=== PATIENT | female | born 2000 | race Caucasian/White ===

== ENCOUNTER 2021-03-06 20:08 | Emergency (ER) | payer OTHER ==
[~2021-03-06] VITALS: Ht 165.1 cm; Wt 56.7 kg
--- NOTE | ~2021-03-06 | EMS ---
[address] [address] EMS Patient Care Report Name: STEVE LESTER Room #: DEP MARGARETH [place]#: [id number] Admission: 03/06/21 Attend Phys: Discharge: 03/06/21 Date of : 00 Report #: [id number] THIS REPORT FOR: //name// Report Transmitted: 03/07/2021 08:00 EMS Care Summary [place], [place]/[facility] Incident [id number] @ 03/06/2021 19:33 Incident Location [address] [place] [address] Patient STEVE LESTER Female, 20 Years 2000 Patient Address [address] [place] [address] Patient History Depression, Patient Allergies No known allergies, Patient Medications Seroquel, Chief Complaint alered mental status due to drug overdose Disposition Transported No Lights/[place] Reason Cardiac Arrest/ Transported To [facility] Narrative Patient was found sitting in the passenger seat of a car with an altered mental status. Bystanders explained that the patient took a few mg of xanax and 30 mg of homemade percocet. The patient was given a dose of narcan via IN and was then moved to the cot. EMS notice no change in the patient's mental status. The [address] [address] EMS Patient Care Report Name: STEVE LESTER Room #: DEP [place]#: [id number] Admission: 03/06/21 Attend Phys: Discharge: 03/06/21 Date of : 00 Report #: [id number] patient was then given a second dose of narcan, but once again had no improvement. The patient was then given a final dose of narcan. The patient became alert once she was in the ambulance just prior to transport but remained confused to where she was and what happened. During transport the patient became more oriented. Patient was transported to the er where care was given to the er nurse. Initial Vitals @19:43P: 86,R: 10,BP: 112/71,Pain: 0/10,GCS: 3,Glucose: 134,SpO2: 93,Revised Trauma: 8, @19:59P: 105,R: 18,BP: 140/93,Pain: 0/10,GCS: 14,SpO2: 98,Revised Trauma: 12, Assessments @19:41MENTAL:Unresponsive,SKIN:Cyanotic,Diaphoresis,HEENT:Eyes: Right: Constricted,Eyes: Left: Constricted,Head/Face: No Abnormalities,Neck/Airway: No Abnormalities,LUNG SOUNDS:General: No Abnormalities,ABDOMEN:General: No Abnormalities,PELVIS//GI:EXTREMITIES:Left Arm: No Abnormalities,Right Arm: No Abnormalities,Left Leg: No Abnormalities,Right Leg: No Abnormalities,PULSE:NEURO:No Abnormalities,@20:02MENTAL:Time Oriented,Place Oriented,Person Oriented,SKIN:Diaphoresis,HEENT:Head/Face: No Abnormalities,Neck/Airway: No Abnormalities,LUNG SOUNDS:ABDOMEN:PELVIS//GI:EXTREMITIES:PULSE:NEURO:No Abnormalities, Impression Overdose - Other opioids Procedures @19:41ALS AssessmentResponse: UnchangedSucceeded@PTAOxygen FlowRate: 15 Device: Non Re-breather Mask (NRB) Response: UnchangedSucceeded@19:42Narcan - 0.5 Milligrams (mg) - IntranasalResponse: Unchanged@19:44Narcan - 0.5 Milligrams (mg) - IntranasalResponse: Unchanged@19:47Narcan - 1 Milligrams (mg) - IntranasalResponse: Improved@19:50Saline Lock 10cc (20 ga) Site: Antecubital-LeftResponse: UnchangedSucceeded@19:463-Lead ECGResponse: UnchangedSucceeded@19:43NPA Response: UnchangedSucceeded@19:43StretcherResponse: Unchanged Timeline [employer]ORBIKE [employer]ER,Oxygen FlowRate: 15 Device: Non Re-breather Mask (NRB) Response: UnchangedSucceeded, 19:30,Call Received 19:30,Dispatch Notified 19:33,Dispatched 19:33,En Route 19:39,On Scene 19:40,At Patient 19:41,ALS Assessment,Response: UnchangedSucceeded, [address] [address] EMS Patient Care Report Name: STEVE LESTER Room #: [facility] MARGARETH [place]#: [id number] Admission: 03/06/21 Attend Phys: Discharge: 03/06/21 Date of : 00 Report #: [id number] 19:42,Narcan - 0.5 Milligrams (mg) - Intranasal,Response: Unchanged 19:43,Stretcher,Response: Unchanged 19:43,BP: 112/71 M,PULSE: 86,RR: 10 R,SPO2: 93 Ox,ETCO2: ,B,PAIN: 0,GCS: 3, 19:43,NPA Response: UnchangedSucceeded, 19:44,Narcan - 0.5 Milligrams (mg) - Intranasal,Response: Unchanged 19:46,3-Lead ECG,Response: UnchangedSucceeded, 19:47,Narcan - 1 Milligrams (mg) - Intranasal,Response: Improved 19:50,Saline Lock 10cc 20 ga Site: Antecubital-Left,Response: UnchangedSucceeded, 19:54,Depart Scene 19:59,BP: 140/93 M,PULSE: 105,RR: 18 R,SPO2: 98 Ox,ETCO2: ,BG: ,PAIN: 0,GCS: 14, 20:15,At Destination 20:32,Call Closed Disclaimer v1.1 Copyright 2020 [employer] This EMS Care Summary contains data elements from the applicable legal record (which may be displayed differently). It is designed to provide pertinent information for the following purposes: continuity of care, clinical quality, and state data reporting. The complete legal record is available to ED staff and administrators of the receiving hospital in [facility]'s Patient Tracker. All data is provided "as is."
[2021-03-06 20:09] VITALS: BP 139/97
== END 2021-03-06 21:00 | disposition left against medical advice (07) ==
LOC: ER 20:08
DX: T42.4X1A Poisoning by benzodiazepines, accidental (unintentional), initial encounter (principal); R41.82 Altered mental status, unspecified; F19.10 Other psychoactive substance abuse, uncomplicated